=== PATIENT | female | born 1990 | race Caucasian/White ===

== ENCOUNTER 2018-10-04 11:36 | Emergency (ER) | payer MEDICAID ==
[~2018-10-04] VITALS: Ht 157.5 cm; Wt 49.9 kg
[2018-10-04 12:25] LABS: CALCIUM 8.8 mg/dL (8.5-10.1); CARBON DIOXIDE 23.3 mmol/L (21-32); CHLORIDE SERUM 105 mmol/L (98-107); CREATININE SERUM 0.6 mg/dL (0.6-1.0); GFR1 > 60 mL/min; GLUCOSE SERUM 83 mg/dL (74-106); POTASSIUM SERUM 3.8 mmol/L (3.5-5.1); SODIUM SERUM 140 mmol/L (136-145)
[2018-10-04 12:28] LABS: BASOPHIL % 0.8 % (0-2); PLATELET COUNT 307 x10^3mcL (130-400); RED CELL DISTRIBUTION WIDTH 12.8 % (11.5-14.5)
[2018-10-04 12:29] LABS: ALBUMIN 3.7 g/dL (3.4-5.0); ALKALINE PHOSPHATASE 58 U/L (46-116); ALT/SGPT 26 U/L (14-59); AST/SGOT 12 U/L (15-37); BILIRUBIN TOTAL 0.57 mg/dL (0.20-1.00); LIPASE 85 IU/L (73-393); TOTAL PROTEIN, SERUM 7.2 g/dL (6.4-8.2)
[2018-10-04 13:19] VITALS: BP 120/68
== END 2018-10-04 13:19 | disposition home or self-care (01) ==
LOC: ED 11:36
PROVIDERS: Emergency Medicine
DX: R10.84 Generalized abdominal pain (principal); N39.0 Urinary tract infection, site not specified; F11.10 Opioid abuse, uncomplicated
CPT/HCPCS: 36415

== ENCOUNTER 2018-10-04 21:19 | Inpatient (IN) | payer MEDICAID ==
[~2018-10-04] VITALS: Ht 167.6 cm; Wt 50.8 kg
[2018-10-04 21:29] VITALS: Ht 167.6 cm; Wt 50.8 kg
--- NOTE | 2018-10-04 21:33 | NUR ---
PT BIB [facility] AND [facility] FOR ALOC AND SI. PT WAS FOUND ON THE SIDE OF THE ROAD PASSOUT IN THE BUSH BY PAMELA VINSON. PT INITIAL GCS WAS 3 PER MEDICS BUT BECAME GCS OF 15 WHEN PT WAS BEING TRANSPORTED. WHILE BEING TRANSPORTED PT EXPRESSED HER DESIRE TO KILL HERSELF PER MEDICS. PT DID NOT RESPOND TO MY VOICE OR GENTLE SHAKING OH THE SHOULDER SO GAVE PT A STERNAL RUB AND PT EYES OPEN AND PT YELLS "DON'T FUCKING DO THAT TO ME". WHEN TRYING TO ASK THE PT WHY SHE IS HER SHE REFUSES TO RESPOND. ASKED THE PT IF SHE WANT TO HARM HERSLEF AND SEE RESPONDS "YES I WANT TO FUCKING ". ASKED PT WHY SHE WANTED TO AND RESPONDS "I JUST DO". ASKED PT IF SHE HAS A PLAN AND SHE STATES "ANY WAY I CAN". ASKED PT IF SHE HAS ANY OTHER COMPLAINTS AND SHE STATES "I HAVE PAIN EVERYWHERE IT IS 20/10 AND I HAVE BEEN TRYING TO GET HIGH ALL DAY". PT IS A&O X 4 GCS 15. PT IS IN ROOM IN FRONT OF NURSES STATION IN A GOWN AND CURTAIN OPENED. PT BELONGINGS REMOVED FROM ROOM AND PLACED IN RADIO ROOM. RESPIRATIONS EVEN AND UNLABORED. VITAL SIGNS STABLE. NO ACUTE DISTRESS NOTED.
--- NOTE | 2018-10-04 22:45 | NUR ---
PT OBSERVERED CRYING AND YELLING. WHEN ASKING THE PT WHY SHE IS CRYING AND YELLING SHE STATES "I WANT TO GO HOME". INFORMED PT THAT THIS CAN NOT HAPPEN SINCE SHE STATED SHE IS SUICIDAL. PT STATES "I DONT WANT TO KILL MYSELF ANY MORE. I WANT TO GOT HOME TO MY KIDS". TOLD PT SHE NEEDS TO STOP YEELING AND REMAIN CALM PT STATES "I NEED SOMETHING TO CALM DOWN BECAUSE I AM PSYCHOTIC". MADE AWARE,
--- NOTE | 2018-10-04 23:26 | NUR ---
PT MEDICATED PER MD ORDER. PT STATES "THANK YOU I NEED THAT". PT ASKS IF SHE CAN GO HOME PT INFORMED SHE CAN'T UNTIL SHE SPEAKS WITH A PSYCHIATRIST. PT STATES "CAN YOU BE MY PSYCHIATRIST I LIKE YOU". PT NOW LYING CALMLY IN BED, RESPIRATIONS EVEN AND UNLABORED. NO ACUTE DISTRESS NOTED.
[2018-10-04 23:42] LABS: BASOPHIL % 1.1 % (0-2); PLATELET COUNT 332 x10^3mcL (130-400); RED CELL DISTRIBUTION WIDTH 12.7 % (11.5-14.5)
[2018-10-05 00:03] LABS: CALCIUM 8.6 mg/dL (8.5-10.1); CARBON DIOXIDE 20.9 mmol/L (21-32); CHLORIDE SERUM 108 mmol/L (98-107); CREATININE SERUM 0.6 mg/dL (0.6-1.0); GFR1 > 60 mL/min; GLUCOSE SERUM 122 mg/dL (74-106); POTASSIUM SERUM 3.6 mmol/L (3.5-5.1); SODIUM SERUM 144 mmol/L (136-145)
[2018-10-05 00:05] LABS: ALBUMIN 3.2 g/dL (3.4-5.0); ALKALINE PHOSPHATASE 71 U/L (46-116); ALT/SGPT 24 U/L (14-59); AST/SGOT 16 U/L (15-37); BILIRUBIN TOTAL 0.2 mg/dL (0.20-1.00); TOTAL PROTEIN, SERUM 6.4 g/dL (6.4-8.2)
[2018-10-05 00:22] LABS: AMPHETAMINE QUAL UR POSITIVE (See below)
[2018-10-05 00:25] LABS: microscopic required? YES; urine erythrocyte 1+ (NEGATIVE)
--- NOTE | 2018-10-05 00:48 | NUR ---
PT RESTING WITH EYES CLOSED. VITAL SIGNS STABLE. RESPIRATIONS EVEN AND UNLABORED. NO ACUTE DISTRESS NOTED.
--- NOTE | 2018-10-05 02:55 | NUR ---
PT RESTING WITH EYES CLOSED. VITAL SIGNS STABLE. RESPIRATION EVEN AND UNLABORED. NO ACUTE DISTRESS NOTED.
--- NOTE | 2018-10-05 05:52 | NUR ---
PT RESTING WITH EYES CLOSED. VITAL SIGNS STABLE. RESPIRATIONS EVEN AND UNLABORED. NO ACUTE DISTRESS NOTED.
--- NOTE | 2018-10-05 07:17 | NUR ---
PT SLEEPING, EASY TO AROUSE AWAKE; BREATHING E/U. PT AAOX4 - DENIES SI OR THOUGHTS OF HURTING OTHERS. PT BREAKFAST TRAY GIVEN TO HER AND IS DRINKING ORANGE JUICE AT THIS TIME
--- NOTE | 2018-10-05 07:54 | NUR ---
Pt Packet received via fax. Contacted the following facilities (packet faxed for review to all of them) [facility], [facility], [facility], [facility], [facility] No beds available at this time, poss. D/Cs later today. Will f/u
--- NOTE | 2018-10-05 08:15 | NUR ---
SLEEPING. AAOX4; BREATHING E/U. NAD NOTED
--- NOTE | 2018-10-05 09:41 | NUR ---
SLEEPING. EASY TO AROUSE AWAKE; AAOX4; BREATHING E/U. NAD NOTED
--- NOTE | 2018-10-05 10:30 | NUR ---
PT AMBULATED TO AND FROM RESTROOM WITHOUT INCIDENCE
--- NOTE | 2018-10-05 10:58 | NUR ---
PT NOT FOUND IN [facility]
--- NOTE | 2018-10-05 11:01 | NUR ---
SPOKE WITH PAMELA DOWNEY AND INFORMED HER PT COULD BE MISSING
--- NOTE | 2018-10-05 11:03 | NUR ---
PT BROUGHT BACK BY SECURITY WHO STATES PT WAS OUTSIDE
--- NOTE | 2018-10-05 11:04 | NUR ---
PT HAS NO CHANGES IN METNAL STATUS. PT COOPERATIVE AND NOT RESISTING AT THIS TIME. DR FRAIRE AWARE.
--- NOTE | 2018-10-05 11:13 | NUR ---
SECURITY STEVENS AT BEDSIDE STAND BY. PER COAL GASIFICATION TECHNICIAN AMBER PT RAN OUT, STOLE A BAG OF CONSTRUCTION TOOLS, AND WAS STANDING AROUND LOCAL STREETS WHEN SECURITY FOUND HER AND BROUGHT HER BACK.
--- NOTE | 2018-10-05 11:22 | NUR ---
PHARMACY STS THEY WILL LOOK FOR CLONIDINE 0.2MG IN STOCK
--- NOTE | 2018-10-05 11:25 | NUR ---
EMT OLLIE AT BEDSIDE SITTER.
--- NOTE | 2018-10-05 11:47 | NUR ---
CALLED PHARMACY AND SPOK WITH ROCKY WHO STATED THEY ONLY HAVE 0.1MG CLONIDINE PATCH AVAILALE. DR FRAIRE INFORMED AND STATED OK TO GIVE PT TWO PATCHES OF 0.1MG CLONIDINE AFTER CONFIRMING WITH PHARMACY IF OK FOR PT.
--- NOTE | 2018-10-05 12:20 | NUR ---
INFORMED PT FOOD TRAY AT BEDSIDE. PT MUMBLED AND TURNED TO L SIDE CONTINUING TO SLEEP
--- NOTE | 2018-10-05 13:06 | NUR ---
REPORT GIVEN TO JESÚS RECEIVING M/S NURSE
--- NOTE | 2018-10-05 13:09 | NUR ---
F/u with contracted facilities regarding placement: [facility]: s/w [facility]: s[facility]w [facility]: No answer, rang continuously, will try back [facility]: s/w [facility], no bed available at this time. [facility]: s/w [facility], states no beds available. [facility] s/w [facility], states they are accepting packets for potential admits. packet faxed for review. [facility] s/w [facility], no beds available. Will f/u with facilities. Will contact with any updates.
--- NOTE | 2018-10-05 13:24 | NUR ---
AWAITING ADMIT ORDERS
[2018-10-05 14:47] VITALS: BP 134/88
--- NOTE | 2018-10-05 14:57 | NUR ---
RECEIVED PT FROM ER, PT ADMIT FOR 5150 SUICIDAL IDEA. PT IS VERY DROWSY, HARDLY WAKE UP. BUT A/O X2 WHILE AWAKE, ABLE TO ANSWER SOME QUESTIONS, BUT CONSTANTLY FALL INTO SLEEP DURING THE ACCESSMENT. LUNG SOUND CLEAR BIALTERAL, NO COUGH, NO SOB, PT DENY ANY CHEST PAIN OR DISCOMFORT, BOWEL SOUND PRESENT ALL 4 QUADRANTS, NO DISTENTION, NO TENDER. PEDAL PULSE PRESENT BOTH FEET, NO EDEMA, NO IV ACCESS AT THIS MOMENT, PT DENY ANY SUICIDAL IDEA AT THIS MOMENT, SITTER AT BEDSIDE, ROOM CLOSE TO NURSE STATION. ALL ADLS ASSIST, ALL NEED MET, CALL LIGHT IN REACH, WILL CONTINUE TO MONITOR.
--- NOTE | 2018-10-05 18:05 | NUR ---
SHE IS STILL VERY SLEEPY, AROUSABLE TO TOUCH AND NAME, BUT FALLS BACK ASLEEP SOON SHE ANSWERS IN A SIMPLE WORD OR TWO. SHE IS BREATHING REGULARLY. SHE HAS NOT AWAKENED ENOUGH TO EAT. 1:1 SITTER IN ROOM WITH HER. NO IV SITE, SHE HAD REFUSED IT EARLIER. NO C/O PAIN. NO SOB. VS'S STABLE.
[2018-10-05 18:13] VITALS: BP 107/70
--- NOTE | 2018-10-05 19:31 | NUR ---
PT ASLEEP AROUSABLE TO TACTILE STIMULUS, NO S/SX OF PAIN, NO DISTRESS, BREATHING EASY AND SPONT, NO IV ACCESS ON 5150 HOLD FOR SUICIDAL IDEATION, SITTER AT BEDSIDE, CLOSELY MONITORED, SHIFT ASSESSMENT DONE, SKIN CDI, CALL LIGHT AT REACH, WILL CONT TO MONITOR.
[2018-10-05 20:11] VITALS: BP 118/74
--- NOTE | 2018-10-05 20:37 | NUR ---
REMINDED DR SAUCEDO TO REVIEW PT'S ADMISSION ORDERS.
--- NOTE | 2018-10-05 20:38 | NUR ---
Follow up calls were made to the following contracted psych facilities regarding bed placement. Still no beds available [place]. [facility], spoke with Alli. [facility], spoke with Itzel. [facility], spoke with Sophie. [facility], spoke with Krista. [facility], spoke with Kirstin. [facility], spoke with Ellie. [facility] will continue to find bed placement and continue to monitor notes.
--- NOTE | 2018-10-05 21:20 | NUR ---
PT AWAKE ATE DINNER COOPERATIVE NO VERBALIZATION OF SUICIDAL IDEATION, SLEPT BACK AFTER EATING DINNER, SITTER REMAINED AT BEDSIDE.
--- NOTE | 2018-10-06 00:27 | NUR ---
PT AWAKE ANXIOUS, OFFERED ATIVAN PO PER PRN ORDER FOR ANXIETY, PT TOOK IT, THEN AFTER TAKING ATIVAN PT ASKING OF KLONOPIN AND OXYCONTIN FOR PAIN, CLAIMED HAVING GENERALIZED PAIN, PAGED DR SAUCEDO AWAITING FOR CALL BACK.
--- NOTE | 2018-10-06 01:06 | NUR ---
DR SAUCEDO TALKED TO THE PATIENT, AWAITING FOR ORDERS.
--- NOTE | 2018-10-06 02:36 | NUR ---
NORCO PO 1 TAB GIVEN FOR C/O GEN PAIN 07/29O PER ASSESSMENT REPOSITIONED SELF FOR COMFORT, CONT TO MONITOR.
--- NOTE | 2018-10-06 06:22 | NUR ---
PT SLEEPING AT THIS TIME, SITTER AT BEDSIDE, NO BEHAV EPISODES DURING THE SHIFT.
[2018-10-06 06:29] LABS: BASOPHIL % 1.3 % (0-2); PLATELET COUNT 319 x10^3mcL (130-400); RED CELL DISTRIBUTION WIDTH 12.5 % (11.5-14.5)
[2018-10-06 06:31] VITALS: BP 121/75
[2018-10-06 07:00] LABS: CALCIUM 8.7 mg/dL (8.5-10.1); CARBON DIOXIDE 23.3 mmol/L (21-32); CHLORIDE SERUM 107 mmol/L (98-107); CREATININE SERUM 0.6 mg/dL (0.6-1.0); GFR1 > 60 mL/min; GLUCOSE SERUM 85 mg/dL (74-106); POTASSIUM SERUM 3.8 mmol/L (3.5-5.1); SODIUM SERUM 140 mmol/L (136-145)
--- NOTE | 2018-10-06 07:30 | NUR ---
RECEIVED PATIENT IN BED, APPEARS TO BE RESTING WELL. 1-1 SITTER AT BEDSIDE. HL NOTED LEFT WRIST. RESP EVEN AND UNLABORED, LUNGS CLEAR ON ROOM AIR. NO ACUTE DISTRESS NOTED. WILL CONTINUE TO MONITOR.
--- NOTE | 2018-10-06 08:21 | NUR ---
Received report from shift superintendent. Will continue to look for placement.
--- NOTE | 2018-10-06 09:53 | NUR ---
PATIENT SITTING UP IN BED, TEARFUL C/O FEELING ANXIOUS AND HAVING GENERALIZED PAIN 10/10 ON THE PAIN SCALE. MEDICATED WITH NORCO AND ATIVAN PO AT THIS TIME. 1-1 SITTER AT BEDSIDE. WILL CONTINUE TO MONITOR.
--- NOTE | 2018-10-06 10:45 | NUR ---
Discount pharmacy card and list to low cost medical clinics given to patient by Lester De Luna.
--- NOTE | 2018-10-06 10:55 | NUR ---
PATIENT HAS BEEN UP TO THE BATHROOM TO WASH UP WITH ENGINE INSPECTOR ASSISTING. PER PATIENT HER GEN PAIN LEVEL HAS GONE DONE TO ABOUT A 5/10 ON THE PAIN SCALE. PATIENT DISLODGED HER HL ON LEFT WRIST. WILL ATTEMPT TO RESTART.
--- NOTE | 2018-10-06 11:07 | NUR ---
Spoke with patient's nurse Yasmany assured her we were still faxing information for placement and asked if she had received any calls, she stated, "no".
--- NOTE | 2018-10-06 13:32 | NUR ---
PATIENT IS SITTING UP IN BED. PATIENT REQUESTING OXYCONTIN AND KLONOPIN, FROM DR BURNHAM. PER PATIENT SHE BUYS IT ON THE STREET. NO ORDER GIVEN FOR THESE MEDS. PATIENT IS TEARFUL OFF AND ON. WHEN ASKED IF SHE HAD ANY SUICIDAL IDEATION, PATIENT REPLIES,"NO, I AM JUST THINKING OF A WAY TO GET BACK AT MY BOYFRIEND.
--- NOTE | 2018-10-06 15:37 | NUR ---
PATIENT IS IN BED C/O FEELING ANXIOUS AND HAVING 10/10 GENRALIZED PAIN ON THE PAIN SCALE. MEDICATED WITH NORCO AND ATIVAN PO AT THIS TIME. WILL MONITOR FOR EFFECT.
--- NOTE | 2018-10-06 16:01 | NUR ---
DR MISTRY NOTIFIED THAT PATIENT DISLODGED HER IV AND THAT WE WERE UNABLE TOR RESTART IV AFTER ATTEMPTING AND ANOTHER NURSE ASLO TRIED.
[2018-10-06 16:57] VITALS: BP 112/72
--- NOTE | 2018-10-06 18:00 | NUR ---
I HAVE REVIEWED THE DATA COLLECTION BY CLAIM TRAINEE (NAME): ENTERED ON (DATE/TIME): I CONCUR WITH THE DATA AND ANY EXCEPTIONS OR COMMENTS ARE LISTED BELOW: PATIENT'S PLAN OF CARE WAS DISCUSSED AND REVIEWED WITH CLAIM TRAINEE:QUINTON MARKS
--- NOTE | 2018-10-06 18:07 | NUR ---
PATIENT HAS BEEN ANXIOUS, CONFUSED AT TIMES. NON COMPLIANT WITH CARE AT TIMES. GETS IN AND OUT OF THE SHOWER EVEN THOUGH SHE IS TOLD NOT TO. REQUESTING OXYCONTIN AND KLONOPIN CONSTATNTLY, PER PATIENT SHE SAID SHE TAKES IT ALL THE TIME AND THAT SHE GETS IT ON THE STREET. DR BELTRE HERE TO SEE PATIENT. PATIENT REQUESTS FOOD AND JUICE FREQUENTLY. TEARFUL OFF AND ON. WILL CONTINUE TO MONITOR.
--- NOTE | 2018-10-06 19:11 | NUR ---
RECEIVED PT FROM PREVIOUS SHIFT. AAO. ANXIOUS AND TEARFUL. MEDSURG. 1:1 AT BEDSIDE FOR SAFETY. PT REQUESTING KLONOPIN AND OXYCODONE, TOLD PT MEDICATIONS WERE NOT ON EMAR, PT CRYING OTHERWISE COOPERATIVE WITH CARE. NO S/S ACUTE DISTRESS. DENIES SOB. NO IV ACCESS, AWARE. CALL LIGHT WITHIN REACH. SAFETY MEASURES IN PLACE. WILL CONTINUE TO MONITOR.
--- NOTE | 2018-10-06 20:49 | NUR ---
PT MEDICATED PER EMAR FOR GENERALIZED BODY PAIN, STATES "MY LEGS ARE GOING TO FALL OFF, I NEED MY KLONOPIN AND OXYCODONE". TOLD PT NORCO WAS AVAILABLE FOR PAIN, PT AGREEABLE TO TAKE "TEMPORARY". PT VERY TEARFUL AND ANXIOUS, ALSO MEDICATED PER EMAR WITH ATIVAN PO.
[2018-10-06 21:24] VITALS: BP 115/70
--- NOTE | 2018-10-06 22:24 | NUR ---
PT AMBULATING AROUND UNIT.
--- NOTE | 2018-10-06 22:40 | NUR ---
Follow up calls were made to contracted [facility] psych facilities regarding 5150 bed placement. [facility], spoke with Rayne. [facility], spoke with Itzel. [facility], spoke with Sophie. They have 36 pending psych admissions. [facility], spoke with Renetta. [facility], spoke with Kirstin. [facility], spoke with Anusha. [facility], spoke with Venecia. They are not accepting out of area patients at this time. [facility] will continue to find bed placement and will continue to monitor notes.
--- NOTE | 2018-10-07 00:48 | NUR ---
PT RESTING IN BED WITH EYES CLOSED. BREATHING E/U. 1:1 REMAINS AT BEDSIDE. NO S/S ACUTE DISTRESS. CALL LIGHT WITHIN REACH. SAFETY MEASURES IN PLACE. WILL CONTINUE TO MONITOR.
--- NOTE | 2018-10-07 05:36 | NUR ---
PT TEARFUL, VERY UPSET. CONTINUES TO ASK FOR KLONOPIN AND OXYCODONE. MD AWARE HOWEVER NO ORDERS FOR KLONOPIN OR OXYCODONE. MEDICATED PER EMAR FOR ANXIETY AND GENERALIZED PAIN.
[2018-10-07 05:48] VITALS: BP 102/76
[2018-10-07 06:21] LABS: BASOPHIL % 1.2 % (0-2)
[2018-10-07 06:23] LABS: PLATELET COUNT 106 x10^3mcL (130-400)
--- NOTE | 2018-10-07 06:27 | NUR ---
DR. MISTRY SAW PT AT BEDSIDE, STATED HE WOULD INPUT ORDER FOR BACLOFEN FOR MUSCLE SPASMS. PT AWARE OF POC. WAITING FOR NEW ORDERS.
[2018-10-07 07:00] LABS: CALCIUM 9.1 mg/dL (8.5-10.1); CARBON DIOXIDE 23.9 mmol/L (21-32); CHLORIDE SERUM 107 mmol/L (98-107); CREATININE SERUM 0.6 mg/dL (0.6-1.0); GFR1 > 60 mL/min; GLUCOSE SERUM 80 mg/dL (74-106); POTASSIUM SERUM 4.7 mmol/L (3.5-5.1); SODIUM SERUM 142 mmol/L (136-145)
--- NOTE | 2018-10-07 07:00 | NUR ---
RECEIVED PT FROM DEALERSHIP MANAGER NURSE. PT IN BED SLEEPING, AROUSABLE, RESP E/U ON RA. NO ACUTE DISTRESS NOTED. PT W/ NO IV ACCESS AT THIS TIME, PREVIOUS NURSE REPORTED THAT DOCTOR IS AWARE. BED IN LOWEST POSITION, SITTER AT BEDSIDE. WILL CONTINUE TO MONITOR.
--- NOTE | 2018-10-07 07:24 | NUR ---
[facility] still working on finding placement for this pt. Will contact/ f/u with contracted facilities. Will contact with any placement updates.
[2018-10-07 08:00] VITALS: BP 112/70
--- NOTE | 2018-10-07 12:30 | NUR ---
PT RESTING IN BE, AOX3, RESP E/U ON RA. C/O ABD PAIN STATING IT FEELS LIKE KNOTS IN HER STOMACH. MEDICATED PER EMAR, COMFORT MEASURES IMPLEMENTED, CALM AND COMPLIANT W/ CARE AT THIS TIME. BED IN LOWEST POSITION AND CALL LIGHT WITHIN REACH. SITTER AT BEDSIDE. WILL CONTINUE TO MONITOR.
[2018-10-07 16:08] VITALS: BP 110/69
--- NOTE | 2018-10-07 17:50 | NUR ---
PT IN BED HAVING DINNER, AOX3, RESP E/U ON RA. PT C/O GENERALIZED MUSCLE SPASMS AND ABD PAIN, RATED 7/10. MEDICATED ORDERED PER EMAR, COMFORT MEASURES IMPLEMENTED. CALM AND COMPLIANT W/ CARE, NO THOUGHTS OF SELF HARM EXPRESSED AT THIS TIME. BED IN LOWEST POSITION AND CALL LIGHT WITHIN REACH. SITTER AT BEDSIDE. WILL ENDORSE TO ONCOMING NURSE.
--- NOTE | 2018-10-07 19:57 | NUR ---
BED AVAILABLE FOR PATIENT AT [facility] IN [place]. DR TIMMONS INFORMED. PT CURRENTLY FEELING RESTLESS, PACING IN ROOM. SITTER AT BEDSIDE. PT C/O SEVERE ABD CRAMPING. MEDICATED PT PER EMAR. BED IN LOWEST POSITION, SIDE RAILS UP X2, CALL LIGHT WITHIN REACH. WILL CONTINUE TO MONITOR.
[2018-10-07 20:48] VITALS: BP 110/69
--- NOTE | 2018-10-07 21:49 | NUR ---
SBA REPORT GIVEN TO NURSE RODRIGUEZ .
--- NOTE | 2018-10-07 22:08 | NUR ---
[facility] ARRIVED TO TRANSFER PT, PT IN NO ACUTE DISTRESS, CALM AND COOPERATIVE.
== END 2018-10-07 22:10 | DRG 756 ==
LOC: ED 21:19 → MU 10-05 12:43
PROVIDERS: Emergency Medicine; ADMIT Internal Medicine
DX: R45.851 Suicidal ideations (principal); E44.0 Moderate protein-calorie malnutrition; F11.23 Opioid dependence with withdrawal; F23 Brief psychotic disorder; F19.10 Other psychoactive substance abuse, uncomplicated; Z68.1 Body mass index [BMI] 19.9 or less, adult; Z59.0 Homelessness
CPT/HCPCS: G0378; G0480; J1630; J2060